=== PATIENT | female | born 1975 | race Caucasian/White ===

== ENCOUNTER → 2019-02-28 | Outpatient (CLI) | payer BC | END | disposition home or self-care (01) | LOC: LAB SHORT 08:27 → LAB EV 08:27 | DX: N20.0 Calculus of kidney (principal) | CPT/HCPCS: 87086 ==

== ENCOUNTER → 2020-08-05 | Outpatient (CLI) | payer OTHER | LOC: LAB SHORT 12:43 → LAB EV 12:43 | DX: R30.9 Painful micturition, unspecified (principal) | CPT/HCPCS: 87086 ==